=== PATIENT | female | born 1960 | race Two or more races ===

== ENCOUNTER 2017-06-05 06:47 | Day surgery (SDC) | payer OTHER ==
[~2017-06-05 06:47] MED LIST: CRESTOR5 MG; TOPROL XL25 MG
[2017-06-05] MEDS ORDERED: NAPROXEN SODIU550 M1 PO (09:11)
== END 2017-06-05 12:55 | disposition home or self-care (01) ==
LOC: CIR.AMB 06:47
DX: N95.0 Postmenopausal bleeding (principal)